=== PATIENT | male | born 1960 | race Caucasian/White ===

== ENCOUNTER 2018-01-18 13:16 | Emergency (ER) | payer BC ==
[2018-01-18] MEDS ORDERED: LORAZEPAM INJ 2 MG/1 ML VIAL IV ONE (14:02)
--- NOTE | 2018-01-18 14:04 | ER Document Report ---
ED Medical Screen (RME) - General Chief Complaint: Chest Pain Stated Complaint: CHEST PAIN Time Seen by Provider: 01/18/18 13:55 Notes: Patient is a 57-year-old male that presents to the emergency department for chief complaint of chest pain. Patient states that he felt this pain earlier today when he was putting furniture together, got worse on his way to the grocery store, this point decided come to the emergency department. Patient does have anxiety and history of panic attacks, he states he is having a hard time catching his breath, and feels very anxious. ROS: Unless otherwise stated in this report the patient's positive and negative responses for review of systems for constitutional, eyes, ENT, cardiovascular, respiratory, gastrointestinal, neurological, genitourinary, musculoskeletal, and integumentary systems and related systems to the presenting problem are either as stated in the HPI or were not pertinent or were negative for the symptoms and/or complaints related to the presenting medical problem. PHYSICAL EXAMINATION: Vital signs reviewed. GENERAL: Well-developed, well-appearing, but very anxious, on history taking HEAD: Atraumatic, normocephalic. EYES: Pupils equal round extraocular movements intact, conjunctiva are normal. ENT: Nares patent NECK: Normal range of motion CV: Heart rate tachycardic, regular rhythm LUNGS: Patient is tachypnea, but very anxious Musculoskeletal: Normal range of motion NEUROLOGICAL: Normal speech PSYCH: Very anxious appearing, rapid breathing MDM: Patient seen and examined for rapid initial assessment. Vital signs reviewed. EKG reviewed, no STEMI, right bundle branch block noted, no comparison available A comprehensive ED assessment and evaluation of the patient, analysis of test results and completion of the medical decision making process will be conducted by additional ED providers. *Note is created using voice recognition software and may contain spelling, syntax or grammatical errors. TRAVEL OUTSIDE OF THE [place] IN LAST 30 DAYS: No - Related Data Allergies/Adverse Reactions: No Known Allergies Allergy (Unverified 01/18/18 13:16) Physical Exam - Vital signs Vitals: Temp Pulse Resp BP Pulse Ox 98.4 F 113 H 16 162/97 H 95 01/18/18 13:31 01/18/18 13:31 01/18/18 13:31 01/18/18 13:31 01/18/18 13:31 Course - Vital Signs Vital signs: Temp Pulse Resp BP Pulse Ox 98.4 F 113 H 16 167/95 H 95 01/18/18 13:31 01/18/18 13:31 01/18/18 13:31 01/18/18 13:32 01/18/18 13:31
[2018-01-18] MEDS ORDERED: FAMOTIDINE 20 MG TABLET PO ONE (15:03)
[2018-01-18] MEDS ORDERED: SUCRALFATE 1 GM TABLET PO ONE (15:04)
[2018-01-18] MEDS ORDERED: MAG HYDROX/AL HYDROX/SIMETH SUSP 30 ML UDCUP PO ONE (15:05)
--- NOTE | 2018-01-18 15:16 | ER Document Report ---
ED General - General Chief Complaint: Chest Pain Stated Complaint: CHEST PAIN Time Seen by Provider: 01/18/18 13:55 Mode of Arrival: Ambulatory Information source: Patient TRAVEL OUTSIDE OF THE [place] IN LAST 30 DAYS: No - HPI Notes: Patient is a 57-year-old male history of hypertension and gout presents to the emergency department with report of chest pain that came on earlier today when he was riding in route to the grocery store. He stated that when he bent over he noticed the discomfort was somewhat worse. He does admit to some belching associated with this but he also reports dyspnea and a mild pleuritic component. Patient has a history of panic attacks and anxiety and he admits also to feeling anxious. He denies any nausea, vomiting, leg pain or swelling, but he did recently travel from [place] to the area to help his [id number] move into a new place. The patient denies any fever or chills or cough or congestion or constipation or diarrhea or dysuria. No numbness or paresthesia. Patient did eat a large breakfast prior to the onset of the discomfort. - Related Data Allergies/Adverse Reactions: No Known Allergies Allergy (Verified 01/18/18 14:44) Past Medical History - General Information source: Patient - Social History Smoking Status: Unknown if Ever Smoked Chew tobacco use (# tins/day): Yes Frequency of alcohol use: Social Drug Abuse: None Lives with: Family Family History: None - No family history of cardiac disease. Patient has suicidal ideation: No Patient has homicidal ideation: No - Past Medical History Cardiac Medical History: Reports: Hx Hypertension Renal/ Medical History: Denies: Hx Peritoneal Dialysis Musculoskeletal Medical History: Reports Hx Arthritis - gout Past Surgical History: Reports: Hx Orthopedic Surgery Review of Systems - Review of Systems -: Yes All other systems reviewed and negative Physical Exam - Vital signs Vitals: Temp Pulse Resp BP Pulse Ox 98.4 F 113 H 16 162/97 H 95 01/18/18 13:31 01/18/18 13:31 01/18/18 13:31 01/18/18 13:31 01/18/18 13:31 - Notes Notes: PHYSICAL EXAMINATION: GENERAL: Well-appearing, well-nourished and in no acute distress. HEAD: Atraumatic, normocephalic. EYES: Pupils equal round and reactive to light, extraocular movements intact, sclera anicteric, conjunctiva are normal. ENT: Nares patent, oropharynx clear without exudates. Moist mucous membranes. NECK: Normal range of motion, supple without lymphadenopathy LUNGS: Breath sounds clear to auscultation bilaterally and equal. No wheezes rales or rhonchi. HEART: Regular rate and rhythm without murmurs ABDOMEN: Soft, nondistended abdomen. No guarding, no rebound. No masses appreciated. Negative Candelario's. Very mild midepigastric pain that radiates to the lower part of the midline chest. Musculoskeletal: Normal range of motion, no pitting or edema. No cyanosis. Negative Homans. No palpable cord. NEUROLOGICAL: Cranial nerves grossly intact. Normal speech, normal gait. Normal sensory, motor exams PSYCH: Patient anxious, somewhat tremulous. SKIN: Warm, Dry, normal turgor, no rashes or lesions noted. Course - Re-evaluation Re-evalutation: 01/18/18 19:00 Patient was given Pepcid and Maalox and Carafate and Ativan with complete relief of his discomfort and anxiety and tremor and pain. Repeat abdominal exam showed no discomfort. 01/18/18 19:01 Patient was watched on the gambling monitor and his blood pressure came down to 139/83 and he had no ectopy or other abnormality. He was pain-free without complaint at time of discharge. Initial and repeat troponins were negative on the patient. 01/18/18 19:02 Question a component of anxiety with the patient's discomfort. Also question reflux. Will advise follow-up with his regular practitioner with consideration for upper endoscopy if belching and reflux continue. The patient will need cardiac evaluation and further care and stress testing if chest pain continue. - Vital Signs Vital signs: Temp Pulse Resp BP Pulse Ox 98.4 F 95 23 H 133/83 H 97 01/18/18 13:31 01/18/18 17:30 01/18/18 18:01 01/18/18 18:01 01/18/18 18:01 - Laboratory Result Diagrams: 01/18/18 15:09 01/18/18 15:09 Laboratory results interpreted by me: 01/18/18 01/18/18 15:09 15:09 WBC 10.6 H Lymphocytes % 12.8 L Glucose 114 H - EKG Interpretation by In EKG shows normal: Sinus rhythm Additional EKG results interpreted by mi: 01/18/18 15:15 EKG as interpreted by me showed sinus tachycardia heart rate of 110 with right bundle branch block. There is no gross evidence for acute OR or ischemia noted. There is no old EKG available for comparison. Discharge - Discharge Clinical Impression: Anxiety Chest pain Qualifiers: Chest pain type: unspecified Qualified Code(s): R07.9 - Chest pain, unspecified GERD (gastroesophageal reflux disease) Qualifiers: Esophagitis presence: with esophagitis Qualified Code(s): K21.0 - Gastro- esophageal reflux disease with esophagitis Condition: Stable Disposition: HOME, SELF-CARE Instructions: Chest Pain of Unclear Cause ([facility]), Reflux Disease (GERD) ([facility]), Anxiety ([facility]) Additional Instructions: If chest pain continues, then follow-up with a collection supervisor. If reflux and belching symptoms continue, you may need to have an upper endoscopy. Prescriptions: Alprazolam [Xanax 0.5 mg Tablet] 0.5 mg PO TIDP PRN #15 tablet PRN Reason: Omeprazole 20 mg PO DAILY #30 capsule.
[2018-01-18 15:24] LABS: ABSOLUTE BASOPHILS # (AUTO) 0.1 10^3/uL (0.0-0.2); ABSOLUTE EOSINOPHILS # (AUTO) 0.2 10^3/uL (0.0-0.6); ABSOLUTE LYMPHOCYTES (AUTO) 1.4 10^3/uL (0.5-4.7); ABSOLUTE MONOCYTES (AUTO) 0.8 10^3/uL (0.1-1.4); ABSOLUTE NEUT (AUTO) 8.2 10^3/uL (1.7-8.2); BASOPHILS % (AUTO) 0.6 % (0-2); EOSINOPHILS % (AUTO) 1.4 % (0-6); HEMATOCRIT 42.8 % (37.9-51.0); HEMOGLOBIN 15.2 g/dL (13.5-17.0); LYMPHOCYTES % (AUTO) 12.8 % (13-45); MEAN CORPUSCULAR HGB CONC 35.5 g/dL (32.0-36.0); MEAN CORPUSCULAR VOLUME 90 fl (80-97); MONOCYTES % (AUTO) 7.7 % (3-13); PLATELET COUNT 189 10^3/uL (150-450); RED BLOOD COUNT 4.75 10^6/uL (4.35-5.55); RED CELL DISTRIBUTION WIDTH 12.4 % (11.5-14.0); SEGMENTED NEUTROPHILS % (AUTO) 77.5 % (42-78); TOTAL CELLS COUNTED % (AUTO) 100 %; WHITE BLOOD COUNT 10.6 10^3/uL (4.0-10.5)
[2018-01-18 15:42] LABS: ALANINE AMINOTRANSFERASE 38 U/L (21-72); ALBUMIN 4.5 g/dL (3.5-5.0); ALKALINE PHOSPHATASE 58 U/L (38-126); ANION GAP 11 (5-19); ASPARTATE AMINO TRANSFERASE 27 U/L (17-59); BILIRUBIN,DIRECT 0.2 mg/dL (0.0-0.4); BILIRUBIN,TOTAL 0.4 mg/dL (0.2-1.3); BLOOD UREA NITROGEN 15 mg/dL (7-20); CALCIUM 9.5 mg/dL (8.4-10.2); CARBON DIOXIDE 27 mmol/L (22-30); CHLORIDE 104 mmol/L (98-107); GLUCOSE 114 mg/dL (75-110); POTASSIUM 4.2 mmol/L (3.6-5.0); SODIUM 141.5 mmol/L (137-145); TOTAL PROTEIN 7.2 g/dL (6.3-8.2)
--- NOTE | 2018-01-18 15:52 | RADIOLOGY REPORT (SQ) ---
EXAM DESCRIPTION: CHEST SINGLE VIEW COMPLETED DATE/TIME: 01/18/2018 3:44 pm REASON FOR STUDY: chest pain COMPARISON: None. EXAM PARAMETERS: NUMBER OF VIEWS: One view. TECHNIQUE: Single frontal radiographic view of the chest acquired. RADIATION DOSE: NA LIMITATIONS: None. FINDINGS: LUNGS AND PLEURA: No opacities, masses or pneumothorax. No pleural effusion. MEDIASTINUM AND HILAR STRUCTURES: No masses. Contour normal. HEART AND VASCULAR STRUCTURES: Heart normal in size. Normal vasculature. BONES: No acute findings. HARDWARE: None in the chest. OTHER: No other significant finding. IMPRESSION: NO ACUTE RADIOGRAPHIC FINDING IN THE CHEST. TECHNICAL DOCUMENTATION: JOB ID: [id number]- All Rights Reserved Reading location - IP/workstation name: [email or web address]
[2018-01-18 19:03] VITALS: BP 137/90
--- NOTE | 2018-01-18 21:07 | EKG REPORT ---
SEVERITY:- ABNORMAL ECG - SINUS TACHYCARDIA RIGHT BUNDLE BRANCH BLOCK : Confirmed by: Darby Norwood 18-Jan-2018 21:06:19
== END 2018-01-18 19:17 | disposition home or self-care (01) ==
LOC: ER 13:16
DX: F41.9 Anxiety disorder, unspecified (principal); K21.0 Gastro-esophageal reflux disease with esophagitis; I10 Essential (primary) hypertension; R07.9 Chest pain, unspecified; R10.13 Epigastric pain; R25.1 Tremor, unspecified; R14.2 Eructation; R00.0 Tachycardia, unspecified; I45.10 Unspecified right bundle-branch block
CPT/HCPCS: 93005; 99285; 96374; 36415; 85025; 80053; 84484; 85379; 71045; 93010; J2060